=== PATIENT | male | born 1945 | race Caucasian/White ===

== ENCOUNTER 2018-08-13 07:08 | Day surgery (SDC) | payer MEDICARE ==
[~2018-08-13 07:08] MED LIST: KETOROLAC TROMETHAMINE 0.45% 4 DROP/0.4 ML DROPERETTE OS PRN
[2018-08-13] MEDS: TETRACAINE HCL 0.5% OPH SOLN 4 ML OS PRN ×3 (08:05→08:39)
[2018-08-13] MEDS: CYCLOPENTOLATE 0.2%/PHENYLEPHRINE 1% OPH SOLN 2 ML OS PRN ×3 (08:06→08:28)
[2018-08-13] MEDS: TROPICAMIDE 1% OPH SOLN 3 ML OS PRN ×3 (08:06→08:28)
[2018-08-13] MEDS: BESIFLOXACIN HCL 0.6% OPH SUSP 5 ML BOTTLE OS PRN ×4 (08:06→09:14)
[2018-08-13] MEDS ORDERED: MIDAZOLAM 2 MG/2 ML INJ ONE (08:21)
[2018-08-13] MEDS ORDERED: FENTANYL CITRATE INJ/PF 100 MCG/2 ML AMPUL ONE (08:21)
[2018-08-13] MEDS: CHONDR SU A NA/HYALUR INTRAOC KIT (SURGICARE) ONE ×2 (08:58)
[2018-08-13] MEDS: EPINEPHRINE INJ/PF 1 MG/1 ML AMPULE ONE ×2 (08:58)
[2018-08-13] MEDS: LIDOCAINE 1%/PHENYLEPHRINE 1.5% 1 ML VIAL ONE ×2 (08:58)
[2018-08-13] MEDS: DORZOLAMIDE HCL 2%/TIMOLOL MALEAT 0.5% OPH SOLN 10 ML OS PRN ×2 (09:14)
--- NOTE | 2018-08-14 10:00 | [facility] OPERATIVE REPORT E ---
[facility] Operative Report NAME: AURELAI GARCIA AGE: 72Y DATE OF SURGERY: 08/13/2018 ROOM: PREOPERATIVE DIAGNOSIS: CATARACT, LEFT EYE. POSTOPERATIVE DIAGNOSIS: CATARACT, LEFT EYE. OPERATION: Cataract extraction with insertion toric IOL of the left eye. SURGEON: EUGENE DELATORRE M.D. ANESTHESIA: Topical. PROCEDURE: After appropriate consent was obtained and calculations made, the patient was brought back to the operating room where the patient was prepped and draped in sterile fashion. A lid speculum was placed and attention was directed to a paracentesis where a paracentesis blade made a small incision. Viscoelastic was then used to inflate the anterior chamber. Next a 2.4 mm incision was made with the paracentesis blade. A continuous capsulorhexis forceps of approximately 5 mm was done using a cystitome and capsulorhexis forceps. Hydrodissection was carried out to make the lens freely mobile and then a divide and conquer technique was used to remove the lens with a CDE of approximately 5.95. Following this, the remaining cortical material was removed with irrigation/aspiration. After this the patient was then again marked. The marking procedure started in the preoperative holding area where 180 and 0 was marked with a marker. Now that the patient was in the operating room a 360-degree marker was used to keke the axis at approximately 110 degrees and a toric lens of 20.0 diopters [id number] rotated to 6 degrees was injected into the bag after filling with viscoelastic and rotating into proper position. The I/A was used to remove the viscoelastic material and the toric lens appeared to be appropriately aligned. A 10-0 nylon suture was used to close the corneal incision and TobraDex was instilled into the eye and a pressure patch was placed with a protective shield. The patient returned to postoperative recovery in stable condition. DICTATING PHYSICIAN: EUGENE DELATORRE M.D. [id number] PHY#: [id number] ID: [id number] JOB#: [id number] ACCT: [id number] cc:EUGENE DELATORRE M.D. >
--- NOTE | 2018-08-14 10:39 | [facility] DISCHARGE SUMMARY E ---
[facility] Discharge Summary NAME: AURELIA GARCIA AGE: 72Y ADMITTED: 08/13/2018 DISCHARGED: HOSPITAL COURSE: This is a 72-year-old male who underwent cataract extraction with toric IOL of the left eye. DIAGNOSIS: CATARACT, LEFT EYE. He underwent surgery because he was having difficulty seeing words on the television. DISCHARGE INSTRUCTIONS: He should be on a regular diet. No bending at his waist, no heavy lifting. He should use her Vigamox, ketorolac, and Predforte at 3 p.m. and 8 p.m. and sleep with a rigid shield. I will see him for his 1-day postoperative tomorrow. DICTATING PHYSICIAN: EUGENE DELATORRE M.D. [id number] PHY#: [id number] ID: [id number] JOB#: [id number] ACCT: [id number] cc:EUGENE DELATORRE M.D. >
== END 2018-08-13 10:08 | disposition home or self-care (01) ==
LOC: SC 07:08
PROVIDERS: ATTEND Internal Medicine
DX: H25.13 Age-related nuclear cataract, bilateral (principal); H04.123 Dry eye syndrome of bilateral lacrimal glands; H01.001 Unspecified blepharitis right upper eyelid; H01.004 Unspecified blepharitis left upper eyelid; H43.813 Vitreous degeneration, bilateral; H52.4 Presbyopia; I10 Essential (primary) hypertension; Z86.73 Personal history of transient ischemic attack (TIA), and cerebral infarction without residual deficits; I25.2 Old myocardial infarction; E78.00 Pure hypercholesterolemia, unspecified; Z79.82 Long term (current) use of aspirin; Z79.899 Other long term (current) drug therapy
CPT/HCPCS: 66984; V2787; J2250; J3490 ×2; A9270; J0171; J3010; J2370; 142

== ENCOUNTER 2018-09-10 06:22 | Day surgery (SDC) | payer MEDICARE ==
[2018-09-10] MEDS ORDERED: MIDAZOLAM 2 MG/2 ML INJ ONE (07:06)
[2018-09-10] MEDS: TROPICAMIDE 1% OPH SOLN 3 ML OD PRN ×3 (07:14→07:45)
[2018-09-10] MEDS: CYCLOPENTOLATE 0.2%/PHENYLEPHRINE 1% OPH SOLN 2 ML OD PRN ×3 (07:14→07:45)
[2018-09-10] MEDS: BESIFLOXACIN HCL 0.6% OPH SUSP 5 ML BOTTLE OD PRN ×3 (07:15→08:15)
[2018-09-10] MEDS: KETOROLAC TROMETHAMINE 0.45% 4 DROP/0.4 ML DROPERETTE OD PRN ×2 (07:15→07:33)
[2018-09-10] MEDS: TETRACAINE HCL 0.5% OPH SOLN 4 ML OD PRN ×4 (07:16→07:52)
[2018-09-10] MEDS ORDERED: CHONDR SU A NA/HYALUR INTRAOC KIT (SURGICARE) ONE (07:24)
[2018-09-10] MEDS: EPINEPHRINE INJ/PF 1 MG/1 ML AMPULE ONE ×2 (08:04)
[2018-09-10] MEDS: LIDOCAINE 1%/PHENYLEPHRINE 1.5% 1 ML VIAL ONE ×2 (08:04)
[2018-09-10] MEDS: DORZOLAMIDE HCL 2%/TIMOLOL MALEAT 0.5% OPH SOLN 10 ML OD PRN ×2 (08:15)
--- NOTE | 2018-09-11 09:36 | [facility] OPERATIVE REPORT E ---
[facility] Operative Report NAME: AURELIA GARCIA AGE: 72Y DATE OF SURGERY: 09/10/2018 ROOM: PREOPERATIVE DIAGNOSIS: CATARACT, RIGHT EYE. POSTOPERATIVE DIAGNOSIS: CATARACT, RIGHT EYE. OPERATION: Cataract extraction with insertion of an IOL of the right eye. SURGEON: EUGENE DELATORRE M.D. ANESTHESIA: Topical. PROCEDURE: After obtaining appropriate consent, the patient's right eye was prepped and draped in sterile fashion as well as the surgeon in a sterile manner and cataract surgery was started. First a paracentesis blade was used to make a side-port incision. Viscoelastic was used to inflate the anterior chamber. Next a 2.4 mm incision was made with a 2.4 mm blade, clear corneal temporally. A continuous capsulorrhexis was made using a cystotome and Utrata forceps. Following this hydrodissection was carried out to make the lens fully loose and mobile and it was rotated 90 degrees. Following this, a zclguv-vzu-[id number] technique was used to phacoemulsify the lens with a CDE of 5.33. The remaining cortex was removed with irrigation/aspiration. Provisc was instilled into the capsular bag to inflate the bag. A SN60WF, 20.0 diopter lens was placed. The remaining viscoelastic material was removed with irrigation/aspiration. Following this, the incision was found to be watertight. Besivance was instilled into the eye and a protective shield was placed over the eye. The patient returned to the postoperative recovery in stable condition. DICTATING PHYSICIAN: EUGENE DELATORRE M.D. [id number] PHY#: [id number] ID: [id number] JOB#: [id number] ACCT: [id number] cc:EUGENE DELATORRE M.D. >
--- NOTE | 2018-09-11 09:40 | [facility] DISCHARGE SUMMARY E ---
[facility] Discharge Summary NAME: AURELIA GARCIA AGE: 72Y ADMITTED: 09/10/2018 DISCHARGED: 09/10/2018 HISTORY: This is a 72-year-old male who underwent cataract extraction of the right eye. DIAGNOSIS: Cataract, right eye. HOSPITAL COURSE: He underwent surgery because he was having difficulty with blurred vision when watching TV. DISCHARGE INSTRUCTIONS: He should be on a regular diet. No bending at his waist. No heavy lifting. He should use his Vigamox, Ketorolac, and Pred Forte at 3 p.m. and 8 p.m. and sleep with a rigid shield, and I will see him for a one day postoperative tomorrow. DICTATING PHYSICIAN: EUGENE DELATORRE M.D. [id number] PHY#: [id number] ID: [id number] JOB#: [id number] ACCT: [id number] cc:EUGENE DELATORRE M.D. >
== END 2018-09-10 08:58 | disposition home or self-care (01) ==
LOC: SC 06:22
PROVIDERS: ATTEND Internal Medicine
DX: H25.811 Combined forms of age-related cataract, right eye (principal); Z96.1 Presence of intraocular lens; I25.2 Old myocardial infarction; I10 Essential (primary) hypertension; Z79.899 Other long term (current) drug therapy; Z79.82 Long term (current) use of aspirin; Z86.73 Personal history of transient ischemic attack (TIA), and cerebral infarction without residual deficits
CPT/HCPCS: 66984; V2632; J2250; J3490 ×2; A9270; J0171; J2370; 142

== ENCOUNTER 2019-07-02 04:54 | Observation (INO) | payer MEDICARE ==
--- NOTE | 2019-07-02 05:20 | ER Document Report ---
ED Medical Screen (RME) - General TRAVEL OUTSIDE OF THE U.S. IN LAST 30 DAYS: No - Related Data Home Medications: asa. atorvastatin. lasartan-hctz. melatonin. metoprolol <MOO MOODY - Last Filed: 07/02/19 05:18> <AGUSTO SHAH - Last Filed: 07/02/19 08:25> - General Chief Complaint: Fall Stated Complaint: FALL/DIZZY Time Seen by Provider: 07/02/19 05:08 Primary Care Provider: SHAILA PERAZA MD [Primary Care Provider] - Follow up as needed Notes: 73-year-old male comes from home by EMS for chief complaint of an episode where he got up to go to the bathroom, became lightheaded, and then fell to the ground. Patient states she is unsure if he passed out. He denies specific head or neck pain but he has pain along his right shoulder area. He also had blood on the ground next to him and he believes this is from biting his lip but he is not certain. Patient is on aspirin but no other blood thinners. Patient denies chest pain, shortness of breath, focal numbness or weakness. He was unable to get up, came to find patient after he called for her and she called EMS. Patient is 7 days status post right shoulder surgery by Dr. Anguiano at [facility]. (MOO MOODY) - Related Data Allergies/Adverse Reactions: iodine [Iodine] Allergy (Verified 09/07/18 14:08) Hives Contrast dye Allergy (Severe, Uncoded 08/14/10 16:09) Hives Past Medical History - Past Medical History Cardiac Medical History: Reports: Hx Heart Attack - 2016, Hx Hypertension - MED Denies: Hx Coronary Artery Disease Pulmonary Medical History: Denies: Hx Asthma, Hx Bronchitis, Hx COPD, Hx Pneumonia Neurological Medical History: Reports: Hx Cerebrovascular Accident - 07/06/09 (Brain bleed) No deficits. Denies: Hx Seizures GI Medical History: Denies: Hx Hepatitis, Hx Hiatal Hernia, Hx Ulcer Musculoskeltal Medical History: Denies Hx Arthritis Infectious Medical History: Denies: Hx Hepatitis Past Surgical History: Reports: Hx Orthopedic Surgery - right shoulder. Denies: Hx Open Heart Surgery, Hx Pacemaker <MOO MOODY - Last Filed: 07/02/19 05:18> Physical Exam - HEENT Head: No: Atraumatic - There is a superficial small laceration to the left lower lip without significant depth. No other obvious signs of trauma over the head - Back Back: No: Tender - No overt tenderness or signs of trauma over the back, normal distal neurovascular exam of all extremities, no saddle anesthesia <MOO MOODY - Last Filed: 07/02/19 05:18> - Vital signs Vitals: Resp Pulse Ox 17 92 07/02/19 05:10 07/02/19 05:10 Course <MOO MOODY - Last Filed: 07/02/19 05:18> - Laboratory Result Diagrams: 07/02/19 05:45 07/02/19 05:45 <AGUSTO SHAH - Last Filed: 07/02/19 08:25> - Re-evaluation Re-evalutation: I have greeted and performed a rapid initial assessment of this patient. A comprehensive ED assessment and evaluation of the patient, analysis of test results and completion of the medical decision making process will be conducted by additional ED providers. (MOO MOODY) - Vital Signs Vital signs: Temp Pulse Resp BP Pulse Ox 98.0 F 18 132/94 H 94 07/02/19 05:11 07/02/19 05:11 07/02/19 05:11 07/02/19 05:11 - Laboratory Laboratory results interpreted by me: 07/02/19 07/02/19 05:45 05:45 RBC 3.67 L Hgb 12.1 L Hct 34.0 L Sodium 135.7 L BUN 44 H Creatinine 1.26 H Est GFR (MDRD) Non-Af 56 L Doctor's Discharge <MOO MOODY - Last Filed: 07/02/19 05:18> <AGUSTO SHAH - Last Filed: 07/02/19 08:25> - Discharge Condition: Fair Disposition: ADMITTED OBSERVATION Referrals: SHAILA PERAZA MD [Primary Care Provider] - Follow up as needed ED NIH Stroke Scale - NIH Stroke Scale *: 1. NIH scale should be completed with appropriate accompanying assessment tools. *: 2. The NIH should reflect what the patient is capable of doing and should not be coached by the clinician. 1a. Level of Consciousness: 0=Alert;keenly responsive -: 1=Drowsy -: 2=Obtunded -: 3=Coma/unresponsive or reflex to noxious stimuli. 1a. Responses: 0 1b. Orientation Questions: a. What month is it? -: b. How old are you? -: 0=Answers both questions correctly. -: 1=Answers one question correctly or patient is intubated or has orotracheal trauma. -: 2=Answers neither question correctly. 1b. Responses: 0 1c. Response to commands: a. Open and close eyes? -: b. Director Of Counterintelligence and release hand? -: Credit is given despite weakness. Demonstration of task is permitted. Substitute command if hands cannot be used. -: 0=Performs both tasks correctly -: 1=Performs one task correctly -: 2=Performs neither task correctly 1c. Responses: 0 2. Gaze: Establish eye contact and instruct patient to "Follow my finger" -: 0=Normal -: 1=Partial gaze palsy. Gaze is abnormal in one or both eyes, but where forced deviation or total gaze paresis is not present. -: 2=Forced deviation or total gaze paresis. 2. Responses: 0 3. Visual Hebert: Sees fingers in all four quadrants. -: 0=No visual loss. -: 1=Partial hemianopsia. -: 2=Complete hemianopsia. -: 3=Bilateral hemianopsia (including Cortical blindness) 3. Responses: 0 4. Facial Movement: Instruct patient to: -: a. Show me your teeth -: b. Raise your eyebrows -: c. Close your eyes -: d. Smile -: 0=Normal symmetrical movement -: 1=Minor paralysis (flattened nasolabial fold, asymmetry on smiling). -: 2=Partial paralysis (total or near total paralysis of lower face). -: 3=Complete paralysis of upper and lower face 4. Responses: 0 5. Motor functions (left arm): Alternate sides and extend each arm with palms down (90 degrees if sitting or 45 degrees for supine). -: 0=No drift;limb holds for full 10 seconds. -: 1=Drift; limb holds but drifts down before full 10 seconds, but does not hit bed. -: 2=Some effort against gravity; limb cannot get to or maintain position. -: 3=No effort against gravity; limb falls. -: 4=No movement. -: UN=Amputation, joint fusion, explain in comments. 5. Responses (left arm): 0 5. Motor Functions (right arm): Alternate sides and extend each arm with palms down (90 degrees if sitting or 45 degrees for supine). -: 0=No drift;limb holds for full 10 seconds. -: 1=Drift; limb holds but drifts down before full 10 seconds, but does not hit bed. -: 2=Some effort against gravity; limb cannot get to or maintain position. -: 3=No effort against gravity; limb falls. -: 4=No movement. -: UN=Amputation, joint fusion, explain in comments. 5. Responses (right arm): UN 6. Motor Functions (left leg): With patient lying supine, alternate sides and extend each leg (30 degrees always while supine). -: 0=No drift, leg holds position for full 5 seconds -: 1=Drift; leg falls before full 5 seconds but does not hit bed. -: 2=Some effort against gravity, leg falls to bed but some effort against gravity. -: 3=No effort against gravity, leg falls to bed immediately. -: 4=No movement. -: UN=Amputation, joint fusion; explain in comments. 6. Responses (left leg): 0 6. Motor Functions (right leg): With patient lying supine, alternate sides and extend each leg (30 degrees always while supine). -: 0=No drift, leg holds position for full 5 seconds -: 1=Drift; leg falls before full 5 seconds but does not hit bed. -: 2=Some effort against gravity, leg falls to bed but some effort against gravity. -: 3=No effort against gravity, leg falls to bed immediately. -: 4=No movement. -: UN=Amputation, joint fusion; explain in comments. 6. Responses (right leg): 0 7. Limb Ataxia: With eyes open instruct patient to: -: a. "Touch your finger to your nose". -: b. "Touch your heel to your bethea" -: 0=Absent -: 1=Present in one limb. -: 2=Present in two limbs. -: UN=Amputation or joint fusion; explain in comments. 7. Responses: 0 8. Sensory: Test sensation using pinprick or noxious stimuli. Test as many body parts as possible. -: 0=Normal;no sensory loss -: 1=Mile to moderate sensory loss (patient feels pin prick but is less sharp on affected side). -: 2=Severe or total sensory loss. 8. Responses: 0 9. Best Language: Instruct patient to: -: a. "Describe what you see in this picture." -: b. "Name the items in this picture." -: c. "Read these sentences." -: 0=No aphasia, normal -: 1=Mild to moderate aphasia. -: 2=Severe aphasia -: 3=Mute, global aphasia, no usable speech or auditory comprehension. 10. Articulation, Dysarthia: Instruct patient to: -: "Read these words" or "Repeat these words" -: 0=Normal -: 1=Mild to moderate; patient may slur some words but can be understood without difficulty. -: 2=Severe; patients speech so slurred as to be unintelligible in the absence of dysphasia. -: UN=Intubated or other physical barrier, explain in comments. 10. Responses: 0 11. Extinction or inattention: 0=No abnormality -: 1= Visual, tactile, auditory, spatial, or personal inattention or extinction to bilateral simulation in one or the sensory modalities. -: 2=Profound aquilino-inattention or aquilino-inattention to more than one modality; does not recognize own hand. 11. Responses: 0 Total Score: 0 <AGUSTO SHAH - Last Filed: 07/02/19 08:25> - NIH Stroke Scale Notes: Right upper ext with sling and immobilized due to recent surgery. (AGUSTO SHAH)
[2019-07-02 06:12] LABS: ALBUMIN 3.9 g/dL (3.5-5.0); ALKALINE PHOSPHATASE 73 U/L (38-126); ANION GAP 8 (5-19); ASPARTATE AMINO TRANSFERASE 35 U/L (17-59); BILIRUBIN,TOTAL 0.8 mg/dL (0.2-1.3); BLOOD UREA NITROGEN 44 mg/dL (7-20); CALCIUM 8.7 mg/dL (8.4-10.2); CARBON DIOXIDE 28 mmol/L (22-30); CHLORIDE 100 mmol/L (98-107); GLUCOSE 98 mg/dL (75-110); POTASSIUM 4.2 mmol/L (3.6-5.0)
[2019-07-02 06:19] LABS: ABSOLUTE EOSINOPHILS # (AUTO) 0.2 10^3/uL (0.0-0.6); ABSOLUTE MONOCYTES (AUTO) 0.9 10^3/uL (0.1-1.4); ABSOLUTE NEUT (AUTO) 5.4 10^3/uL (1.7-8.2); BASOPHILS % (AUTO) 0.3 % (0-2); EOSINOPHILS % (AUTO) 2.7 % (0-6); HEMOGLOBIN 12.1 g/dL (13.5-17.0); LYMPHOCYTES % (AUTO) 23.7 % (13-45); MEAN CORPUSCULAR HEMOGLOBIN 33.1 pg (27.0-33.4); MEAN CORPUSCULAR HGB CONC 35.7 g/dL (32.0-36.0); MEAN CORPUSCULAR VOLUME 93 fl (80-97); MONOCYTES % (AUTO) 10.2 % (3-13); PLATELET COUNT 242 10^3/uL (150-450); RED BLOOD COUNT 3.67 10^6/uL (4.35-5.55); RED CELL DISTRIBUTION WIDTH 12.5 % (11.5-14.0); SEGMENTED NEUTROPHILS % (AUTO) 63.1 % (42-78); TOTAL CELLS COUNTED % (AUTO) 100 %; WHITE BLOOD COUNT 8.6 10^3/uL (4.0-10.5)
--- NOTE | 2019-07-02 06:39 | RADIOLOGY REPORT (SQ) ---
CLINICAL HISTORY: fall, head injury COMPARISON: None. 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 FINDINGS: There is no acute hemorrhage, mass effect or midline shift. Rico-white differentiation is preserved. There is no hydrocephalus. There is no significant volume loss for age. There are mild patchy hypodensities within the periventricular and subcortical white matter, consistent with microangiopathic ischemic changes. The calvarium is intact. Orbits and globes are unremarkable. The paranasal sinuses are clear. Mastoid air cells are clear. IMPRESSION: No acute intracranial findings.
--- NOTE | 2019-07-02 06:39 | RADIOLOGY REPORT (SQ) ---
CLINICAL HISTORY: fall, head injury COMPARISON: None. 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 FINDINGS: There is no acute fracture. There is mild rightward curvature of the cervical spine. There is grade 1 anterolisthesis of C7 on T1. There is moderate left-sided and more mild right-sided facet arthritis. There is moderate narrowing of the C5-6 and C6-7 and C7-T1 discs. Vertebral body heights are preserved. Soft tissues are unremarkable. IMPRESSION: No acute fracture or subluxation.
--- NOTE | 2019-07-02 06:40 | RADIOLOGY REPORT (SQ) ---
CLINICAL HISTORY: fall, right shoulder pain, recent surgery COMPARISON: None. 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 Total right shoulder arthroplasty was performed. There are overlying skin milind. Soft tissues are unremarkable. IMPRESSION: Expected postoperative changes
--- NOTE | 2019-07-02 06:40 | RADIOLOGY REPORT (SQ) ---
CLINICAL HISTORY: syncopal episode COMPARISON: 12/04/2015. TECHNIQUE: XR CHEST 1 VIEW 07/02/2019 5:16 AM TOOL COORDINATOR FINDINGS: Cardiac silhouette is normal in size. Lungs are clear without consolidation, atelectasis, mass or edema. There is no pleural effusion. There is no pneumothorax. There are no acute osseous findings. Right diaphragm is mildly elevated. Right shoulder arthroplasty was performed. IMPRESSION: Clear lungs.
--- NOTE | 2019-07-02 07:40 | EKG REPORT ---
SEVERITY:- ABNORMAL ECG - SINUS RHYTHM LEFT ANTERIOR FASCICULAR BLOCK LEFT VENTRICULAR HYPERTROPHY : Confirmed by: Dionicio López MD 02-Jul-2019 07:39:25
[2019-07-02] MEDS ORDERED: NORMAL SALINE 500 ML IV ONE (08:22)
[2019-07-02] MEDS ORDERED: NORMAL SALINE 250 ML IV ONE (08:23)
--- NOTE | 2019-07-02 08:36 | ER Document Report ---
Entered by MANUEL PARK SCRIBE 07/02/19 0726 Acting as scribe for:AGUSTO SHAH MD ED Fall - General Chief Complaint: Fall Stated Complaint: FALL/DIZZY Time Seen by Provider: 07/02/19 05:08 Primary Care Provider: SHAILA PERAZA MD [Primary Care Provider] - Follow up as needed Mode of Arrival: Ambulatory Information source: Patient Notes: This 73 year old male patient presents to the emergency department today with complaints of a fall that occurred just prior to arrival. Patient recently had a right shoulder surgery (06/25/2019) and he states that since this operation he has been sleeping on a recliner in his living room for comfort. Patient states he woke up at 4:30 AM this morning and he felt "hot and thirsty" so he states he stood up to go get something to drink, he remembers being lightheaded and dizzy, and then remembers calling for his to come help him up off the floor. states she was a few rooms over and she heard him calling for her. states she thinks the patient may have lost consciousness briefly as "his dog was curled up beside him and he does not remember the dog coming to him or being with him". states when she found the patient he was lying on the ground with blood coming from his mouth. Patient has a lip abrasion. Patient complains of mild right shoulder soreness but denies any other symptoms. Patient denies any chest pain or lower extremity pain. TRAVEL OUTSIDE OF THE [place] IN LAST 30 DAYS: No - Related data Allergies/Adverse Reactions: iodine [Iodine] Allergy (Verified 09/07/18 14:08) Hives Contrast dye Allergy (Severe, Uncoded 08/14/10 16:09) Hives Home Medications: asa. atorvastatin. lasartan-hctz. melatonin. metoprolol Past Medical History - General Information source: Patient, [facility] Records - Social History Smoking Status: Unknown if Ever Smoked Cigarette use (# per day): No Frequency of alcohol use: None Drug Abuse: None Lives with: Family Family History: Reviewed & Not Pertinent Patient has suicidal ideation: No Patient has homicidal ideation: No - Past Medical History Cardiac Medical History: Reports: Hx Heart Attack - 2016, Hx Hypertension Neurological Medical History: Reports: Hx Cerebrovascular Accident - 07/06/09 (hemorrhagic) No deficits Past Surgical History: Reports: Hx Orthopedic Surgery - right shoulder Review of Systems - Review of Systems Constitutional: See HPI, Other - fall EENT: See HPI, Other - lip abrasion Cardiovascular: See HPI, Dizziness, Lightheaded. denies: Chest pain Respiratory: No symptoms reported Gastrointestinal: No symptoms reported Genitourinary: No symptoms reported Male Genitourinary: No symptoms reported Musculoskeletal: No symptoms reported Skin: No symptoms reported Hematologic/Lymphatic: No symptoms reported Neurological/Psychological: No symptoms reported -: Yes All other systems reviewed and negative Physical Exam - Vital signs Vitals: Resp Pulse Ox 17 92 07/02/19 05:10 07/02/19 05:10 - Notes Notes: Physical Exam: General: Alert, appears well. HEENT: Normocephalic. Atraumatic. PERRL. Extraocular movements intact. Oropharynx clear. Lower grzegorz abrasion with dried blood, no active bleeding. Lower lip contusion. Neck: Supple. Non-tender. Respiratory: No respiratory distress. Clear and equal breath sounds bilaterally. Cardiovascular: Regular rate and rhythm. Abdominal: Normal Inspection. Non-tender. No distension. Normal Bowel Sounds. Back: No gross abnormalities. Extremities: Upper extremities: RUE is in a sling, no shoulder tenderness with palpation. Lower extremities: Normal inspection. No edema. Normal ROM. Neurological: Normal cognition. AAOx4. Normal speech. Psychological: Normal affect. Normal Mood. Skin: Warm. Dry. Normal color. Course - Re-evaluation Re-evalutation: 07/02/19 08:26 Patient is alert and oriented not showing any focal neuro deficits at this time. Patient's last known well time was on known as patient was sleeping in the berto m alone. Patient was found on the floor conscious at that he had call for his to come to the room. Apparently patient had loss of consciousness because he was unaware that his dog was nestled color looks close to him. Patient is not a candidate for any thrombolyzes inasmuch as patient NIH score is 0 and last known well time was not understood. And patient has a normal neuro exam at this time. 07/02/19 08:33 Case was discussed with the hospitalist team and is admitting patient t o observation telemetry bed. - Vital Signs Vital signs: Temp Pulse Resp BP Pulse Ox 98.0 F 18 132/94 H 94 07/02/19 05:11 07/02/19 05:11 07/02/19 05:11 07/02/19 05:11 - Laboratory Result Diagrams: 07/02/19 05:45 07/02/19 05:45 Laboratory results interpreted by me: 07/02/19 07/02/19 05:45 05:45 RBC 3.67 L Hgb 12.1 L Hct 34.0 L Sodium 135.7 L BUN 44 H Creatinine 1.26 H Est GFR (MDRD) Non-Af 56 L 07/02/19 08:32 Laboratory results show a elevated BUN and creatinine over baseline consistent with dehydration. Patient also has hyper low normal sodium at 135. 07/02/19 08:33 Troponin less than 0.0122. - Diagnostic Test Radiology reviewed: Reports reviewed Radiology results interpreted by me: 07/02/19 08:[address] X-[address] series CT scan of head shows no acute process. Patchy hypodensities noted consistent with microangiopathic ischemic changes. CT scan of cervical spine no fractures or any evidence of subluxation. Shoulder x-ray right shoulder shows no acute process there is a total right shoulder arthroplasty noted. No acute change. Chest x-ray clear lungs no acute process. - EKG Interpretation by Me Additional EKG results interpreted by me: 07/02/19 08:32 Twelve-lead EKG 07/02/2019 at 508 shows normal sinus rhythm rate of 69 occasional PVC. Left anterior fascicular block and left ventricular hypertrophy no acute ST-T wave changes. Critical Care Note - Critical Care Note Total time excluding time spent on procedures (mins): 39 - Monitoring neurological cardiovascular status and trauma work-up. Discharge - Discharge Clinical Impression: Syncope and collapse, Dehydration, Contusion, lip, Hypertension Condition: Fair Disposition: ADMITTED OBSERVATION Admitting Provider: Hilaria (Hospitalist) Unit Admitted: Telemetry Referrals: SHAILA PERAZA MD [Primary Care Provider] - Follow up as needed I personally performed the services described in the documentation, reviewed and edited the documentation which was dictated to the scribe in my presence, and it accurately records my words and actions.
[2019-07-02 09:02] LABS: APPEARANCE,URINE CLEAR; BILIRUBIN,URINE NEGATIVE (NEGATIVE); COLOR,URINE YELLOW; GLUCOSE, URINE NEGATIVE (NEGATIVE); KETONES,URINE NEGATIVE (NEGATIVE); LEUKOCYTE ESTERASE,URINE NEGATIVE (NEGATIVE); NITRITE,URINE NEGATIVE (NEGATIVE); PROTEIN,URINE NEGATIVE (NEGATIVE); URINE SPECIFIC GRAVITY 1.018; UROBILINOGEN,URINE NEGATIVE mg/dL (<2.0)
[2019-07-02] MEDS ORDERED: NORMAL SALINE 1000 ML 1,000 ML IV PRN (09:06)
--- NOTE | 2019-07-02 09:28 | PDOC H&P ---
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 Patient was sitting in his chair when he felt thirsty and hot and suddenly got up to go to drink some water. Upon standing up and walking towards the kitchen, patient suddenly syncopized within about 20 seconds of rising from chair. Patient admits to preceding lightheadedness upon walking. Patient denies any chest pain, shortness of breath, palpitations. Upon falling, patient hit his lip and sustained an injury. Patient admits to recent surgical proced ure on his right shoulder. Patient denies any postictal state. The episode was unwitnessed but was in the next door. Past Medical History Cardiac Medical History: Reports: Myocardial Infarction - 2016, Hypertension Denies: Coronary Artery Disease Pulmonary Medical History: Denies: Asthma, Bronchitis, Chronic Obstructive Pulmonary Disease (COPD), Pneumonia Neurological Medical History: Denies: Seizures GI Medical History: Denies: Hepatitis, Hiatal Hernia Musculoskeltal Medical History: Denies: Arthritis Hematology: Denies: Anemia, Sickle Cell Disease Past Surgical History Past Surgical History: Reports: Appendectomy, Orthopedic Surgery - right shoulder, Tonsillectomy Denies: Pacemaker Social History Information Source: Patient Lives with: Family Smoking Status: Never Smoker Frequency of Alcohol Use: None Hx Recreational Drug Use: No - Advance Directive Resuscitation Status: Full Code Family History Family History: Hypertension Parental Family History Reviewed: Yes Children Family History Reviewed: NA Sibling(s) Family History Reviewed.: NA Medication/Allergy Home Medications: Aspirin [Ecotrin] 81 mg PO DAILY PRN 08/10/18 Atorvastatin Calcium [Lipitor 10 mg Tablet] 5 mg PO QHS 08/10/18 Ketorolac Tromethamine 0.45% [Acuvail 0.45% Oph Soln 0.4 ml/Dropperette] 1 drop OD ASDIR 08/10/18 Losartan/Hydrochlorothiazide [Losartan-Hctz 100-25 mg Tab] 0.5 each PO DAILY 08/10/18 Melatonin/Pyridoxine [Melatonin 5 mg Tablet] 1 each PO DAILY 08/10/18 Metoprolol Succinate 100 mg PO DAILY 08/10/18 Moxifloxacin HCl [Vigamox 0.5% Oph Soln 3 ml] 1 drop OP ASDIR 08/10/18 Prednisolone Acetate [Pred Forte] 1 ml OP ASDIR 08/10/18 Allergies/Adverse Reactions: iodine [Iodine] Allergy (Verified 09/07/18 14:08) Hives Contrast dye Allergy (Severe, Uncoded 08/14/10 16:09) Hives Review of Systems Constitutional: ABSENT: chills, fever(s), headache(s) Nose, Mouth, and Throat: ABSENT: headache(s) Cardiovascular: ABSENT: chest pain, orthropnea Respiratory: ABSENT: cough, dyspnea, hemoptysis Gastrointestinal: ABSENT: abdominal pain, melena, nausea, vomiting Musculoskeletal: ABSENT: muscle weakness Neurological: PRESENT: memory loss - Mild memory losses is chronic since initial stroke in 2010. ABSENT: confusion, focal weakness, paresthesias, weakness Psychiatric: ABSENT: anxiety Endocrine: ABSENT: polyuria Allergic/Immunologic: PRESENT: seasonal rhinorrhea Physical Exam Vital Signs: Temp Pulse Resp BP Pulse Ox 98.0 F 83 24 H 141/95 H 94 07/02/19 05:11 07/02/19 08:54 07/02/19 08:39 07/02/19 08:54 07/02/19 08:36 Intake & Output 07/01/19 07/02/19 07/03/19 06:59 06:59 06:59 Weight 81.647 kg General appearance: PRESENT: no acute distress, cooperative Eye exam: PRESENT: EOMI, PERRLA. ABSENT: scleral icterus Mouth exam: PRESENT: laceration - Left lip, neck supple Neck exam: ABSENT: JVD Respiratory exam: PRESENT: clear to auscultation barry, unlabored. ABSENT: tachypnea, wheezes Cardiovascular exam: PRESENT: RRR, +S1, +S2. ABSENT: diastolic murmur, systolic murmur, tachycardia GI/Abdominal exam: PRESENT: normal bowel sounds, soft. ABSENT: rebound, rigid, tenderness Extremities exam: ABSENT: calf tenderness, pedal edema, +1 edema, +2 edema Neurological exam: PRESENT: alert, awake, oriented to person, oriented to place, oriented to time, oriented to situation. ABSENT: aphasic Psychiatric exam: PRESENT: appropriate affect Focused psych exam: ABSENT: pressured speech Skin exam: ABSENT: jaundice Results Laboratory Results: 07/02/19 05:45 07/02/19 05:45 07/02/19 07/02/19 07/02/19 05:45 05:45 08:50 WBC 8.6 RBC 3.67 L Hgb 12.1 L Hct 34.0 L MCV 93 MCH 33.1 MCHC 35.7 RDW 12.5 Plt Count 242 Seg Neutrophils % 63.1 Sodium 135.7 L Potassium 4.2 Chloride 100 Carbon Dioxide 28 Anion Gap 8 BUN 44 H Creatinine 1.26 H Est GFR ( Amer) > 60 Glucose 98 Calcium 8.7 Total Bilirubin 0.8 AST 35 Alkaline Phosphatase 73 Total Protein 7.0 Albumin 3.9 Urine Color YELLOW Urine Appearance CLEAR Urine pH 6.0 Ur Specific [place] 1.018 Urine Protein NEGATIVE Urine Glucose (UA) NEGATIVE Urine Ketones NEGATIVE Urine Blood MODERATE H Urine Nitrite NEGATIVE Ur Leukocyte Esterase NEGATIVE Urine WBC (Auto) 1 Urine RBC (Auto) 8 07/02/19 05:45 Troponin I < 0.012 Impressions: Cervical Spine CT 07/02/19 05:16 IMPRESSION: No acute fracture or subluxation. Chest X-Ray 07/02/19 05:16 IMPRESSION: Clear lungs. Head CT 07/02/19 05:16 IMPRESSION: No acute intracranial findings. Shoulder X-Ray 07/02/19 05:16 IMPRESSION: Expected postoperative changes Assessment and Plan - Diagnosis (1) Syncope and collapse Is this a current diagnosis for this admission?: Yes Plan: Likely secondary to orthostatic hypotension. Orthostatic vitals were positive. Will give some IV fluids. EKG showing anterior fascicular block which is chronic for patient. ekg monitor showing frequent PVCs occasionally going into bigeminy Will give patient's Lopressor Will also check echocardiogram Telemetry monitoring through the night. (2) Lip laceration Qualifiers: Encounter type: initial encounter Qualified Code(s): S01.511A - Laceration without foreign body of lip, initial encounter Is this a current diagnosis for this admission?: Yes Plan: Secondary to fall from syncope. Trauma evaluation done with CT head and C-spine as well as shoulder x-ray which were unremarkable. Supportive care (3) Orthostatic hypotension Is this a current diagnosis for this admission?: Yes Plan: Plan as in problem #1 (4) Hypertension Qualifiers: Hypertension type: essential hypertension Qualified Code(s): I10 - Essential (primary) hypertension Is this a current diagnosis for this admission?: Yes Plan: Restart patient's losartan. Will restart hydrochlorothiazide tomorrow. (5) Frequent PVCs Is this a current diagnosis for this admission?: Yes Plan: Noted on telemetry. Lopressor. Will monitor. Electrolytes within normal limits. Troponin negative. Check magnesium level. (6) Obstructive sleep apnea on CPAP Is this a current diagnosis for this admission?: Yes Plan: Nocturnal CPAP - Time Time Spent with patient: 35 or more minutes
[2019-07-02] MEDS: LOSARTAN POTASSIUM 50 MG TABLET PO SCH (09:50)
[2019-07-02] MEDS: ASPIRIN 81 MG TABLET, ENT COATED PO SCH (09:50)
[2019-07-02] MEDS: METOPROLOL TARTRATE 25 MG TABLET PO SCH ×2 (09:50→21:26)
[2019-07-02] MEDS: ENOXAPARIN SODIUM INJ 40 MG/0.4 ML DISP.SYRIN SUBCUT SCH (09:52)
[2019-07-02] MEDS ORDERED: MELATONIN 5 MG TABLET PO SCH (22:00)
--- NOTE | 2019-07-02 22:58 | XCELERA REPORT ---
[address] [address] Transthoracic Echocardiogram Report Name: AURELIA GARCIA Age: 73 yrs Gender: Male : 1945 Patient Status: Inpatient Patient Location: [address] [place] [address] Study Date: 07/02/2019 06:15 PM Height: 67 in Weight: 180 lb BSA: 1.9 m2 Procedure: A complete two-dimensional transthoracic echocardiogram was performed (2D, M-mode, spectral and color flow Doppler). The study was technically difficult with many images being suboptimal in quality. Reason For Study: syncope Ordering Physician: BHARTI SAMUELS Performed By: Lin Marcano Interpretation Summary The left ventricular ejection fraction is normal. Doppler measurements suggest pseudonormalized left ventricular relaxation, which is associated with grade II/IV or mild to moderate diastolic dysfunction There is moderate concentric left ventricular hypertrophy. The left ventricle is grossly normal size. Wall motion cannot be accurately commented on, but no definite regional wall motion abnormalities noted. The right ventricle is mildly dilated. The right atrium is normal in size Borderline left atrial enlargement. There is no mitral valve stenosis. There is a trace to mild amount of mitral regurgitation There is aortic sclerosis without aortic stenosis. There is a trace amount of aortic regurgitation There is no tricuspid stenosis. There is a trace or physiologic amount of tricuspid regurgitation The aortic root is not well visualized but is probably normal size. The inferior vena cava was not well visualized There is no pericardial effusion. MMode/2D Measurements & Calculations RVDd: 3.3 cm LVIDd: 4.4 cm FS: 34.8 % Ao root diam: 3.3 cm IVSd: 1.6 cm LVIDs: 2.9 cm EDV(Teich): 89.7 ml Ao root area: 8.6 cm2 LVPWd: 1.4 cm ESV(Teich): 32.2 ml LA dimension: 3.2 cm EF(Teich): 64.2 % Doppler Measurements & Calculations MV E max marin: MV P1/2t max marin: Ao V2 max: LV V1 max P.2 cm/sec 67.8 cm/sec 145.3 cm/sec 3.8 mmHg MV A max marin: MV P1/2t: 109.9 msec Ao max P.5 mmHg LV V1 max: 78.3 cm/sec MVA(P1/2t): 2.0 cm2 97.4 cm/sec MV E/A: 0.74 MV dec slope: 180.6 cm/sec2 MV dec time: 0.32 sec PA V2 max: TR max marin: MV P1/2t-pr_phl: 94.8 cm/sec 208.5 cm/sec 109.9 msec PA max PG: TR max P.4 mmHg 3.6 mmHg Left Ventricle The left ventricle is grossly normal size. There is moderate concentric left ventricular hypertrophy. The left ventricular ejection fraction is normal. Doppler measurements suggest pseudonormalized left ventricular relaxation, which is associated with grade II/IV or mild to moderate diastolic dysfunction. Wall motion cannot be accurately commented on, but no definite regional wall motion abnormalities noted. Right Ventricle The right ventricle is mildly dilated. The right ventricular systolic function is normal. Atria The right atrium is normal in size. Borderline left atrial enlargement. Interarterial septum not well visualized and not well dopplered. Cannot comment on ASD/PFO presence. Mitral Valve The mitral valve leaflets are sclerotic, but show no functional abnormalities. There is no mitral valve stenosis. There is a trace to mild amount of mitral regurgitation. Aortic Valve The aortic valve is mildly calcified. There is aortic sclerosis without aortic stenosis. There is a trace amount of aortic regurgitation. Tricuspid Valve The tricuspid valve is not well visualized, but is grossly normal. There is no tricuspid stenosis. There is a trace or physiologic amount of tricuspid regurgitation. Tricuspid regurgitation jet envelope not well defined to measure RV systolic pressure accurately. Pulmonic Valve The pulmonic valve is not well visualized. Great Vessels The aortic root is not well visualized but is probably normal size. The inferior vena cava was not well visualized. Effusions There is no pericardial effusion. : BHARTI SAMUELS Shyamal
[2019-07-03] MEDS: HYDROCHLOROTHIAZIDE 12.5 MG TABLET PO SCH ×2 (08:00→08:02)
[2019-07-03 10:46] VITALS: BP 132/92
[2019-07-03] MEDS: METOPROLOL TARTRATE 25 MG TABLET PO SCH (10:47)
[2019-07-03] MEDS: LOSARTAN POTASSIUM 50 MG TABLET PO SCH (10:48)
[2019-07-03] MEDS: ENOXAPARIN SODIUM INJ 40 MG/0.4 ML DISP.SYRIN SUBCUT SCH (10:48)
[2019-07-03] MEDS: ASPIRIN 81 MG TABLET, ENT COATED PO SCH (10:48)
--- NOTE | 2019-07-03 18:26 | PDOC DISCHARGE SUMMARY ---
Impression - Admit/DC Date/PCP Admission Date/Primary Care Provider: 07/02/19 08:43 SHAILA PERAZA MD Discharge Date: 07/03/19 - Additional Information Resuscitation Status: Full Code Discharge Diet: Cardiac Discharge Activity: Activity As Tolerated, No Driving, No Lifting Over 10 Pounds, No Lifting/Push/Pulling, Slowly Increase Activity, No tub bath Referrals: SHAILA PERAZA MD [Primary Care Provider] - Follow up as needed Prescriptions: Losartan Potassium [Cozaar 50 mg Tablet] 50 mg PO DAILY #30 tablet Home Medications: Aspirin [Ecotrin] 81 mg PO DAILY 08/10/18 Cholecalciferol (Vitamin D3) [Vitamin D3 1000 Unit Tablet] 1 tab PO DAILY 07/02/19 Melatonin [Melatonin 5 mg Tablet] 10 mg PO QHS 07/02/19 Multivitamin [Multivitamins] 1 tab PO DAILY 07/02/19 Polyvinyl Alcohol/Povidone/Pf [Refresh Classic Eye Drops] 1 drop OU Q6HP PRN 07/02/19 Losartan Potassium [Cozaar 50 mg Tablet] 50 mg PO DAILY #30 tablet 07/03/19 Metoprolol Tartrate [Lopressor] 25 mg PO BID #0 07/03/19 History of Present Illiness History of Present Illness: AURELIA GARCIA is a 73 year old male with a history of myocardial infarction in 2016, 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 Patient was sitting in his chair when he felt thirsty and hot and suddenly got up to go to drink some water. Upon standing up and walking towards the kitchen, patient suddenly syncopized within about 20 seconds of rising from chair. Patient admits to preceding lightheadedness upon walking. Patient denies any chest pain, shortness of breath, palpitations. Upon falling, patient hit his lip and sustained an injury. Patient admits to recent surgical procedure on his right shoulder. Patient denies any postictal state. The episode was unwitnessed but was in the next door. Hospital Course Hospital Course: Head CT was negative. Patient was determined to have orthostatic hypotension and responded well to IV fluids. His oral intake has not been very good lately, and he had continue to take his blood pressure medications which included a moderate dose of metoprolol as well as HCTZ. His metoprolol was decreased and his HCTZ has been discontinued. His blood pressure has still been reasonably well controlled. He has been able to ambulate without having a syncopal episode again. He had surgery on his shoulder about a week ago and his activity level has not been as high as it normally is. He was coached on proper position changes to avoid a recurrence of his symptoms. He verbalizes understanding. His labs and examination were reassuring and he was discharged in stable condition. Physical Exam Vital Signs: Temp Pulse Resp BP Pulse Ox 98.2 F 92 17 132/92 H 98 07/03/19 12:55 07/03/19 12:55 07/03/19 12:55 07/03/19 12:55 07/03/19 12:55 Intake & Output 07/02/19 07/03/19 07/04/19 06:59 06:59 07:59 Intake Total 1210 365 Balance 1210 365 Weight 81.647 kg 79.7 kg General appearance: PRESENT: no acute distress, cooperative, disheveled Respiratory exam: PRESENT: clear to auscultation barry, symmetrical, unlabored. ABSENT: accessory muscle use, crackles, prolonged expiratory phas, retraction, rhonchi, tachypnea, wheezes Cardiovascular exam: PRESENT: RRR, +S1, +S2 GI/Abdominal exam: PRESENT: normal bowel sounds, soft. ABSENT: distended, guarding, rebound, tenderness Extremities exam: ABSENT: clubbing, pedal edema Musculoskeletal exam: PRESENT: normal inspection. ABSENT: deformity Neurological exam: PRESENT: alert, awake, oriented to person, oriented to place, oriented to situation Skin exam: PRESENT: dry, warm Results Laboratory Results: WBC 8.6 10^3/uL (4.0-10.5) 07/02/19 05:45 RBC 3.67 10^6/uL (4.35-5.55) L 07/02/19 05:45 Hgb 12.1 g/dL (13.5-17.0) L 07/02/19 05:45 Hct 34.0 % (37.9-51.0) L 07/02/19 05:45 MCV 93 fl (80-97) 07/02/19 05:45 MCH 33.1 pg (27.0-33.4) 07/02/19 05:45 MCHC 35.7 g/dL (32.0-36.0) 07/02/19 05:45 RDW 12.5 % (11.5-14.0) 07/02/19 05:45 Plt Count 242 10^3/uL (150-450) 07/02/19 05:45 Lymph % (Auto) 23.7 % (13-45) 07/02/19 05:45 Kimble % (Auto) 10.2 % (3-13) 07/02/19 05:45 Eos % (Auto) 2.7 % (0-6) 07/02/19 05:45 Baso % (Auto) 0.3 % (0-2) 07/02/19 05:45 Absolute Neuts (auto) 5.4 10^3/uL (1.7-8.2) 07/02/19 05:45 Absolute Lymphs (auto) 2.0 10^3/uL (0.5-4.7) 07/02/19 05:45 Absolute Monos (auto) 0.9 10^3/uL (0.1-1.4) 07/02/19 05:45 Absolute Eos (auto) 0.2 10^3/uL (0.0-0.6) 07/02/19 05:45 Absolute Basos (auto) 0.0 10^3/uL (0.0-0.2) 07/02/19 05:45 Seg Neutrophils % 63.1 % (42-78) 07/02/19 05:45 Sodium 135.7 mmol/L (137-145) L 07/02/19 05:45 Potassium 4.2 mmol/L (3.6-5.0) 07/02/19 05:45 Chloride 100 mmol/L (98-107) 07/02/19 05:45 Carbon Dioxide 28 mmol/L (22-30) 07/02/19 05:45 Anion Gap 8 (5-19) 07/02/19 05:45 BUN 44 mg/dL (7-20) H 07/02/19 05:45 Creatinine 1.26 mg/dL (0.52-1.25) H 07/02/19 05:45 Est GFR ( Amer) > 60 (>60) 07/02/19 05:45 Est GFR (MDRD) Non-Af 56 (>60) L 07/02/19 05:45 Glucose 98 mg/dL (75-110) 07/02/19 05:45 Calcium 8.7 mg/dL (8.4-10.2) 07/02/19 05:45 Magnesium 2.4 mg/dL (1.6-2.3) H 07/02/19 05:45 Total Bilirubin 0.8 mg/dL (0.2-1.3) 07/02/19 05:45 Direct Bilirubin 0.0 mg/dL (0.0-0.4) 07/02/19 05:45 Neonat Total Bilirubin Not Reportable 07/02/19 05:45 Neonat Direct Bilirubin Not Reportable 07/02/19 05:45 Neonat Indirect Bili Not Reportable 07/02/19 05:45 AST 35 U/L (17-59) 07/02/19 05:45 ALT 22 U/L (<50) 07/02/19 05:45 Alkaline Phosphatase 73 U/L (38-126) 07/02/19 05:45 Troponin I < 0.012 ng/mL 07/02/19 05:45 Total Protein 7.0 g/dL (6.3-8.2) 07/02/19 05:45 Albumin 3.9 g/dL (3.5-5.0) 07/02/19 05:45 Urine Color YELLOW 07/02/19 08:50 Urine Appearance CLEAR 07/02/19 08:50 Urine pH 6.0 (5.0-9.0) 07/02/19 08:50 Ur Specific [place] 1.018 07/02/19 08:50 Urine Protein NEGATIVE mg/dL (NEGATIVE) 07/02/19 08:50 Urine Glucose (UA) NEGATIVE mg/dL (NEGATIVE) 07/02/19 08:50 Urine Ketones NEGATIVE mg/dL (NEGATIVE) 07/02/19 08:50 Urine Blood MODERATE (NEGATIVE) H 07/02/19 08:50 Urine Nitrite NEGATIVE (NEGATIVE) 07/02/19 08:50 Urine Bilirubin NEGATIVE (NEGATIVE) 07/02/19 08:50 Urine Urobilinogen NEGATIVE mg/dL (<2.0) 07/02/19 08:50 Ur Leukocyte Esterase NEGATIVE (NEGATIVE) 07/02/19 08:50 Urine WBC (Auto) 1 /HPF 07/02/19 08:50 Urine RBC (Auto) 8 /HPF 07/02/19 08:50 U Hyaline Cast (Auto) 1 /LPF 07/02/19 08:50 Urine Mucus (Auto) RARE /LPF 07/02/19 08:50 Urine Ascorbic Acid NEGATIVE (NEGATIVE) 07/02/19 08:50 07/02/19 05:45 Troponin I < 0.012 Impressions: Cervical Spine CT 07/02/19 05:16 IMPRESSION: No acute fracture or subluxation. Chest X-Ray 07/02/19 05:16 IMPRESSION: Clear lungs. Head CT 07/02/19 05:16 IMPRESSION: No acute intracranial findings. Shoulder X-Ray 07/02/19 05:16 IMPRESSION: Expected postoperative changes Plan Time Spent: Greater than 30 Minutes Stroke Is this a Stroke Patient?: No Acute Heart Failure - Is this a Heart Failure Patient?: No
== END 2019-07-03 13:46 | disposition home or self-care (01) ==
LOC: ER 04:54 → EH 08:43 → 4S 11:02
PROVIDERS: ADMIT Internal Medicine; ATTEND Internal Medicine
DX: R55 Syncope and collapse (principal); I95.1 Orthostatic hypotension; S01.511A Laceration without foreign body of lip, initial encounter; W19.XXXA Unspecified fall, initial encounter; G47.33 Obstructive sleep apnea (adult) (pediatric); I10 Essential (primary) hypertension; I69.311 Memory deficit following cerebral infarction; I44.4 Left anterior fascicular block; I49.3 Ventricular premature depolarization; E86.0 Dehydration; M25.511 Pain in right shoulder; I25.2 Old myocardial infarction; Z79.899 Other long term (current) drug therapy; Z79.82 Long term (current) use of aspirin; Z82.49 Family history of ischemic heart disease and other diseases of the circulatory system; Z96.611 Presence of right artificial shoulder joint; R29.700 NIHSS score 0
CPT/HCPCS: 93005; 99291; 96372; 96360; 36415; 83735; 85025; 80053; 81001; 84484; 93306; 71045; 73030; 70450; 72125; 93010; G0378 ×3; A9270 ×8; J1650 ×2; J3490; J7040